=== PATIENT | male | born 1965 | race Caucasian/White ===

== ENCOUNTER 2019-08-17 09:04 | Outpatient (CLI) | payer MEDICAID ==
[~2019-08-17] VITALS: Ht 177.8 cm; Wt 56.7 kg
[2019-08-17 09:19] VITALS: BP 98/66
[2019-08-19] MEDS ORDERED: PROAIR HFA8.5 GM INH (08:56)
[2019-08-19] MEDS ORDERED: ZOFRAN4 M3 ORAL (08:56)
[2019-08-19] MEDS ORDERED: GABAPENTIN100 MG ORAL (08:56)
[2019-08-19] MEDS ORDERED: ACETAMINOPHEN-1 EAC1 ORAL (08:56)
[2019-08-19] MEDS ORDERED: FLUTICASONE PRO16 G1 NASAL (08:56)
--- NOTE | 2019-08-24 02:00 | Consultation ---
DATE OF CONSULTATION: 08/17/2019 CONSULTING PHYSICIAN: Fran Agrawal MD REFERRING PHYSICIAN: . CHIEF COMPLAINT: Referral for Crohn disease. HISTORY OF PRESENT ILLNESS: This is a 53-year-old male with questionable diagnosis of Crohn disease. According to him, in 2015, he had a surgery, we do not know whether it was for ruptured appendix versus Crohn disease obstruction. The history from this patient is very vague. He does not have any records with him. He said everything was done at [facility], which I do not have access to, but apparently at one point he was put on prednisone taper, was given Imuran, but he is not taking any of them at this time. His main complaint at this time is weakness, abdominal pain, and fatigue. PAST MEDICAL HISTORY: 1. History of Crohn disease. 2. Hemorrhoids. 3. Insomnia. 4. Nicotine dependency. PAST SURGICAL HISTORY: Appendectomy. MEDICATIONS: He is on gabapentin, Tylenol, Zofran, albuterol, and fluticasone. FAMILY HISTORY: No family history of GI malignancies. SOCIAL HISTORY: The patient denies any alcohol, but smokes 1 pack per day. Denies any drug abuse. ALLERGIES: Chlordiazepoxide and aspirin. MEDICATIONS: Please see medication reconciliation list. REVIEW OF SYSTEMS: Positive for abdominal pain, fatigue, weight loss, and weakness. PHYSICAL EXAMINATION: VITAL SIGNS: Temperature 97.6, blood pressure 98/66, pulse is 66, and respirations 20. HEENT: Normocephalic and atraumatic. Sclerae anicteric. NECK: Supple. No evidence of obvious lymphadenopathy. CARDIOVASCULAR: Rhythm rate and rhythm. Plus S1-S2. LUNGS: Clear to auscultation bilaterally. ABDOMEN: Positive bowel sounds. Nontender. There is a big scar from prior abdominal seen in the midline. No rebound. No guarding. No peritoneal sign. EXTREMITIES: No cyanosis, no clubbing, no edema. ASSESSMENT AND PLAN: A 53-year-old male with questionable diagnosis of Crohn disease without any records at this time. No evidence of any active GI bleeding at this time, mainly complaining of fatigue and tiredness. The patient was educated about the need for colonoscopy. The patient was also said if he has Crohn disease, smoking would make the Crohn much worse. The patient was educated about avoiding NSAIDs. The patient is a little hesitant to have a colonoscopy at this time. We are going to try to get authorization anyway and if he agrees with colonoscopy for him. Meanwhile, the patient was told to bring in the records for us for evaluation. Fran Solis Agrawal DR: Chiquita JOB#: [id number] CC:
== END 2019-08-17 11:04 | disposition home or self-care (01) ==
LOC: PAN 09:04
DX: K50.90 Crohn's disease, unspecified, without complications (principal)
CPT/HCPCS: G0463